=== PATIENT | male | born 1965 | race Two or more races ===

== ENCOUNTER → 2018-09-28 | Outpatient (CLI) | payer OTHER ==
[2018-09-28 09:18] LABS: Urine WBC None Seen /hpf (0 - 3)
[2018-09-28 09:35] LABS: Urine Bacteria NONE SEEN /hpf (None Seen); Urine Blood Negative /uL (Negative); Urine Mucus FEW (None Seen); Urine Specific Gravity 1.018 (1.001-1.035)
[2018-09-28 09:37] LABS: Basophils # (auto) 0.1 uL; Eosinophils # (auto) 0.1 uL; Eosinophils % (auto) 1.7 % (0.0-7.0); Hematocrit 49.2 % (41.0-53.0); Hemoglobin 17.1 g/dL (13.5-17.5); Lymphocytes # (auto) 3.2 uL; Lymphocytes % (auto) 46.2 % (10.0-50.0); Mean Corpuscular Hemoglobin 29.2 pg (28.0-32.0); Mean Corpuscular Hgb Conc. 34.7 g/dL (32.0-36.0); Mean Corpuscular Volume 84.1 fL (80.0-100.0); Monocytes # (auto) 0.5 uL; Neutrophils # (auto) 3.1 uL; Neutrophils % (auto) 44.1 % (37.0-80.0); Nucleated Red Blood Cells % 0.4 %; Platelet Count (auto) 231 10^3/uL (140-450); Red Blood Cells 5.84 10^6/uL (4.5-5.90); Red Cell Distribution Width 14.2 % (11.8-14.3)
[2018-09-28 10:05] LABS: Albumin 3.8 g/dL (3.4-5.0); Calcium 8.6 mg/dL (8.5-10.1); Magnesium 1.9 mg/dL (1.6-2.6); Potassium 3.6 mmol/L (3.5-5.1)
[2018-09-28 10:12] LABS: BUN/Creatinine Ratio 8.5; Bilirubin, Total 1.4 mg/dL (0.2-1.0); Phosphorus 2.9 mg/dL (2.5-4.90); Total Protein 7.5 g/dL (6.4-8.2)
== END | disposition home or self-care (01) ==
LOC: LAB 08:33
PROVIDERS: ATTEND Internal Medicine Nephrology
DX: I10 Essential (primary) hypertension (principal)
CPT/HCPCS: 36415; 80053; 80061; 81001; 83036; 83735; 84100; 84443; 85025

== ENCOUNTER → 2018-10-31 | Outpatient (CLI) | payer OTHER ==
[2018-10-31 10:35] LABS: Urine Bacteria NONE SEEN /hpf (None Seen); Urine Blood Negative /uL (Negative); Urine Mucus FEW (None Seen); Urine Specific Gravity 1.018 (1.001-1.035); Urine WBC <1 /hpf (0 - 3)
[2018-10-31 11:07] LABS: Potassium 3.9 mmol/L (3.5-5.1)
[2018-10-31 11:15] LABS: Calcium 8.7 mg/dL (8.5-10.1)
[2018-10-31 11:18] LABS: Protein, Urine 13.4 mg/dL (0.0-11.9)
[2018-10-31 11:29] LABS: Micro Albumin 16.1 mg/L (0-30.0)
== END | disposition home or self-care (01) ==
LOC: LAB 08:54
PROVIDERS: ATTEND Internal Medicine Nephrology
DX: R80.9 Proteinuria, unspecified (principal); I10 Essential (primary) hypertension
CPT/HCPCS: 36415; 80048; 81001; 82043; 82570; 84156

== ENCOUNTER 2019-02-18 10:22 | Inpatient (IN) | payer OTHER ==
[~2019-02-18] VITALS: Ht 180.3 cm; Wt 97.8 kg
[2019-02-18] MEDS ORDERED: methylPREDNISolone SOD SUCC 125 MG/2 ML VL IV ONE (10:45)
[2019-02-18] MEDS ORDERED: ALBUTEROL SULF 2.5 MG/0.5ML(0.5%) NEB SOLN HHN ONE (10:45)
[2019-02-18 10:59] LABS: Basophils # (auto) 0.1 uL; Basophils % (auto) 0.8 % (0.0-2.0); Eosinophils # (auto) 0.1 uL; Eosinophils % (auto) 1.3 % (0.0-7.0); Hematocrit 50.7 % (41.0-53.0); Hemoglobin 17.5 g/dL (13.5-17.5); Lymphocytes # (auto) 3.3 uL; Lymphocytes % (auto) 37.8 % (10.0-50.0); Mean Corpuscular Hemoglobin 29.3 pg (28.0-32.0); Mean Corpuscular Hgb Conc. 34.5 g/dL (32.0-36.0); Mean Corpuscular Volume 84.8 fL (80.0-100.0); Monocytes # (auto) 1.1 uL; Monocytes % (auto) 12.3 % (0.0-12.0); Neutrophils # (auto) 4.1 uL; Neutrophils % (auto) 47.8 % (37.0-80.0); Nucleated Red Blood Cells % 0.3 %; Platelet Count (auto) 216 10^3/uL (140-450); Red Blood Cells 5.97 10^6/uL (4.5-5.90); Red Cell Distribution Width 13.8 % (11.8-14.3); White Blood Cell 8.6 10^3/uL (4.4-10.8)
[2019-02-18 11:09] LABS: Albumin 3.8 g/dL (3.4-5.0); Anion Gap 2 (5-15); Blood Urea Nitrogen 11 mg/dL (7-18); Calcium 8.8 mg/dL (8.5-10.1); Carbon Dioxide 29 mmol/L (21-32); Chloride 104 mmol/L (98-107); Glucose 118 mg/dL (74-106); Potassium 3.7 mmol/L (3.5-5.1); Sodium 135 mmol/L (136-145)
[2019-02-18 11:16] LABS: Alanine Aminotransferase 25 U/L (16-61); Alkaline Phosphatase 64 U/L (45-117); Aspartate Aminotransferase 21 U/L (15-37); BUN/Creatinine Ratio 8.3; Bilirubin, Total 0.8 mg/dL (0.2-1.0); GFR African American 72 mL/min; GFR Non-African American 60 mL/min; Total Protein 8.3 g/dL (6.4-8.2)
[2019-02-18] MEDS ORDERED: ACETAMINOPHEN 500 MG TAB PO PRN (13:30)
[2019-02-18] MEDS ORDERED: hydrALAZINE HCL 20 MG/ML VL IV PRN (13:30)
[2019-02-18] MEDS ORDERED: NITROGLYCERIN 0.4 MG SL TAB SL PRN (13:30)
[2019-02-18] MEDS ORDERED: ONDANSETRON HCL 4 MG/2 ML VIAL IV PRN (13:30)
[2019-02-18] MEDS ORDERED: MORPHINE SULF INJ 2 MG/ML SYRINGE 1ML IV PRN ×2 (13:30)
[2019-02-18] MEDS: cefTRIAXone 1GM/50ML D5W 50 ML IV SCH (14:15)
[2019-02-18] MEDS: IPRATROPIUM BROM 0.5 MG/2.5ML INH SOL NEB SCH ×3 (14:31→22:11)
[2019-02-18] MEDS: ALBUTEROL SULF 2.5 MG/0.5ML(0.5%) NEB SOLN NEB SCH ×3 (14:31→22:11)
[2019-02-18 14:54] VITALS: BP 144/75
[2019-02-18] MEDS: AZITHROMYCIN 500MG/ 250ML 250 ML IV SCH (15:05)
[2019-02-18 18:45] VITALS: BP 148/85
[2019-02-18] MEDS: methylPREDNISolone SOD SUCC 125 MG/2 ML VL IV SCH (21:13)
[2019-02-18] MEDS: HYDROcodone-ACET 5/325MG TAB PO PRN (21:16)
[2019-02-18 22:00] VITALS: BP 132/86
[2019-02-18] MEDS: BUDESONIDE (INHALATION) 0.5 MG/2 ML NEB NEB SCH (22:11)
[2019-02-19 05:00] VITALS: BP 143/89
[2019-02-19] MEDS: ALBUTEROL SULF 2.5 MG/0.5ML(0.5%) NEB SOLN NEB SCH ×5 (06:05→22:23)
[2019-02-19] MEDS: IPRATROPIUM BROM 0.5 MG/2.5ML INH SOL NEB SCH ×5 (06:05→22:23)
[2019-02-19 06:57] LABS: Basophils # (auto) 0 uL; Basophils % (auto) 0.5 % (0.0-2.0); Eosinophils # (auto) 0 uL; Hematocrit 48.7 % (41.0-53.0); Lymphocytes # (auto) 1.4 uL; Lymphocytes % (auto) 23.2 % (10.0-50.0); Mean Corpuscular Hemoglobin 29.9 pg (28.0-32.0); Mean Corpuscular Volume 85.4 fL (80.0-100.0); Monocytes # (auto) 0.3 uL; Monocytes % (auto) 4.3 % (0.0-12.0); Neutrophils # (auto) 4.2 uL; Nucleated Red Blood Cells % 0.4 %; Platelet Count (auto) 212 10^3/uL (140-450); Red Blood Cells 5.71 10^6/uL (4.5-5.90); Red Cell Distribution Width 13.7 % (11.8-14.3); White Blood Cell 5.9 10^3/uL (4.4-10.8)
[2019-02-19 07:16] LABS: BUN/Creatinine Ratio 14.8; Calcium 8.7 mg/dL (8.5-10.1); Potassium 4.4 mmol/L (3.5-5.1)
[2019-02-19 08:00] VITALS: BP 147/83
[2019-02-19] MEDS: cefTRIAXone 1GM/50ML D5W 50 ML IV SCH (08:21)
[2019-02-19] MEDS: AZITHROMYCIN 500MG/ 250ML 250 ML IV SCH (10:16)
[2019-02-19] MEDS: methylPREDNISolone SOD SUCC 125 MG/2 ML VL IV SCH ×2 (10:17→22:37)
[2019-02-19] MEDS: FAMOTIDINE 20 MG TAB PO SCH (10:17)
[2019-02-19] MEDS: amLODIPine BESYLATE 5 MG TAB PO SCH (10:17)
[2019-02-19] MEDS: BUDESONIDE (INHALATION) 0.5 MG/2 ML NEB NEB SCH ×2 (10:29→19:32)
[2019-02-19 12:00] VITALS: BP 126/79
[2019-02-19 17:00] VITALS: BP 136/84
[2019-02-19] MEDS: HYDROcodone-ACET 5/325MG TAB PO PRN (18:17)
[2019-02-19 22:00] VITALS: BP 127/72
[2019-02-20 05:00] VITALS: BP 130/70
[2019-02-20] MEDS: IPRATROPIUM BROM 0.5 MG/2.5ML INH SOL NEB SCH ×3 (05:55→14:00)
[2019-02-20] MEDS: BUDESONIDE (INHALATION) 0.5 MG/2 ML NEB NEB SCH (05:55)
[2019-02-20] MEDS: ALBUTEROL SULF 2.5 MG/0.5ML(0.5%) NEB SOLN NEB SCH ×3 (05:55→14:00)
[2019-02-20 08:00] VITALS: BP 132/90
[2019-02-20] MEDS: cefTRIAXone 1GM/50ML D5W 50 ML IV SCH (08:54)
[2019-02-20] MEDS: AZITHROMYCIN 500MG/ 250ML 250 ML IV SCH (10:35)
[2019-02-20] MEDS: methylPREDNISolone SOD SUCC 125 MG/2 ML VL IV SCH (10:37)
[2019-02-20] MEDS: FAMOTIDINE 20 MG TAB PO SCH (10:37)
[2019-02-20] MEDS: amLODIPine BESYLATE 5 MG TAB PO SCH (10:37)
[2019-02-20 12:59] VITALS: BP 133/79
== END 2019-02-20 13:40 | disposition home or self-care (01) | DRG 189 ==
LOC: ER 10:27 → OVERFLOW 10:28 → CENTRAL 18:10
PROVIDERS: ADMIT Nurse Practitioner Acute Care; ATTEND Family Medicine
DX: J96.01 Acute respiratory failure with hypoxia (principal); J44.1 Chronic obstructive pulmonary disease with (acute) exacerbation; J44.0 Chronic obstructive pulmonary disease with (acute) lower respiratory infection; E66.9 Obesity, unspecified; F17.290 Nicotine dependence, other tobacco product, uncomplicated; I10 Essential (primary) hypertension; J20.9 Acute bronchitis, unspecified; Z68.30 Body mass index [BMI] 30.0-30.9, adult; Z71.6 Tobacco abuse counseling
CPT/HCPCS: 36415; 71045; 80048; 80053; 83880; 84484; 85025; 85379; 87070; 87205; 87804; 93005; 94640; 94644; 96365; 96367; 96375; G0378; J0696

== ENCOUNTER → 2019-04-29 | Outpatient (CLI) | payer OTHER ==
[~2019-04-29] MED LIST: ALBUTEROL SULF 2.5 MG/0.5ML(0.5%) NEB SOLN ONE
== END | disposition home or self-care (01) ==
LOC: RT 08:39
PROVIDERS: ATTEND Internal Medicine Pulmonary Disease
DX: J44.9 Chronic obstructive pulmonary disease, unspecified (principal); R06.09 Other forms of dyspnea
CPT/HCPCS: 94060; 94727; 94729

== ENCOUNTER → 2019-10-31 | Outpatient (CLI) | payer OTHER | END | disposition home or self-care (01) | LOC: XYW 09:53 | PROVIDERS: ATTEND Internal Medicine | DX: R06.02 Shortness of breath (principal) | CPT/HCPCS: 93306 ==

== ENCOUNTER → 2019-11-01 | Outpatient (CLI) | payer OTHER ==
[2019-11-01 08:11] LABS: Basophils # (auto) 0.1 10 ^3/uL (0-0.2); Basophils % (auto) 1.1 % (0.0-2.0); Eosinophils # (auto) 0.1 10 ^3/uL (0-0.8); Hematocrit 44.8 % (41.0-53.0); Hemoglobin 15.1 g/dL (13.5-17.5); Lymphocytes # (auto) 2.4 10 ^3/uL (0.4-5.4); Lymphocytes % (auto) 32.9 % (10.0-50.0); Mean Corpuscular Hemoglobin 27.5 pg (28.0-32.0); Mean Corpuscular Hgb Conc. 33.7 g/dL (32.0-36.0); Mean Corpuscular Volume 81.5 fL (80.0-100.0); Monocytes # (auto) 0.5 10 ^3/uL (0-1.3); Neutrophils # (auto) 4.3 10 ^3/uL (1.6-8.6); Nucleated Red Blood Cells % 0.3 %; Platelet Count (auto) 364 10^3/uL (140-450); Red Cell Distribution Width 13.8 % (11.8-14.3); White Blood Cell 7.3 10^3/uL (4.4-10.8)
[2019-11-01 08:39] LABS: Albumin 3.6 g/dL (3.4-5.0); Calcium 8.8 mg/dL (8.5-10.1); Potassium 4.2 mmol/L (3.5-5.1)
[2019-11-01 08:44] LABS: BUN/Creatinine Ratio 13.6; Bilirubin, Total 0.7 mg/dL (0.2-1.0); Total Protein 7.5 g/dL (6.4-8.2)
== END | disposition home or self-care (01) ==
LOC: LAB 07:43
PROVIDERS: ATTEND Internal Medicine
DX: I10 Essential (primary) hypertension (principal)
CPT/HCPCS: 36415; 80053; 85025

== ENCOUNTER → 2019-11-01 | Outpatient (CLI) | payer OTHER ==
[~2019-11-01] VITALS: Ht 175.3 cm; Wt 117.9 kg
[~2019-11-01] MED LIST changes: +ADENOSINE 99 MG in GIVE UN-DILUTED 0 ML IV STA; -ALBUTEROL SULF 2.5 MG/0.5ML(0.5%) NEB SOLN ONE
== END | disposition home or self-care (01) ==
LOC: XY 08:21
PROVIDERS: ATTEND Internal Medicine
DX: R06.02 Shortness of breath (principal); R63.8 Other symptoms and signs concerning food and fluid intake; I10 Essential (primary) hypertension; J44.9 Chronic obstructive pulmonary disease, unspecified
CPT/HCPCS: 78452; 93017; A9500; J0153

== ENCOUNTER 2019-11-18 12:00 | Inpatient (IN) | payer OTHER ==
[~2019-11-18] VITALS: Ht 175.3 cm; Wt 119.5 kg
[2019-11-18 13:00] LABS: Basophils # (auto) 0.2 10 ^3/uL (0-0.2); Basophils % (auto) 1.4 % (0.0-2.0); Eosinophils # (auto) 0.1 10 ^3/uL (0-0.8); Eosinophils % (auto) 1.4 % (0.0-7.0); Hematocrit 45.4 % (41.0-53.0); Hemoglobin 15.5 g/dL (13.5-17.5); Lymphocytes # (auto) 3.3 10 ^3/uL (0.4-5.4); Lymphocytes % (auto) 30.3 % (10.0-50.0); Mean Corpuscular Hemoglobin 27.9 pg (28.0-32.0); Mean Corpuscular Hgb Conc. 34.1 g/dL (32.0-36.0); Mean Corpuscular Volume 81.9 fL (80.0-100.0); Monocytes % (auto) 9.7 % (0.0-12.0); Neutrophils # (auto) 6.2 10 ^3/uL (1.6-8.6); Neutrophils % (auto) 57.2 % (37.0-80.0); Nucleated Red Blood Cells % 0.4 %; Platelet Count (auto) 341 10^3/uL (140-450); Red Blood Cells 5.55 10^6/uL (4.5-5.90); Red Cell Distribution Width 14.5 % (11.8-14.3); White Blood Cell 10.8 10^3/uL (4.4-10.8)
[2019-11-18 13:12] LABS: INR 1.02 (0.9-1.15); Partial Thromboplastin Time 29.2 sec (23.0-31.2)
[2019-11-18 13:18] LABS: Albumin 3.4 g/dL (3.4-5.0); Anion Gap 5 (5-15); Blood Urea Nitrogen 12 mg/dL (7-18); Calcium 9.2 mg/dL (8.5-10.1); Carbon Dioxide 25 mmol/L (21-32); Chloride 108 mmol/L (98-107); GFR African American 90 mL/min; GFR Non-African American 74 mL/min; Glucose 86 mg/dL (74-106); Potassium 3.8 mmol/L (3.5-5.1); Sodium 138 mmol/L (136-145)
[2019-11-18 13:23] LABS: Alanine Aminotransferase 21 U/L (16-61); Alkaline Phosphatase 65 U/L (45-117); Aspartate Aminotransferase 13 U/L (15-37); Bilirubin, Total 0.6 mg/dL (0.2-1.0); Total Protein 7.9 g/dL (6.4-8.2)
[2019-11-18] MEDS ORDERED: IOHEXOL 350 MG/ML 100ML IJ ONE (13:29)
[2019-11-18] MEDS ORDERED: ONDANSETRON HCL 4 MG/2 ML VIAL IV ONE (13:30)
[2019-11-18] MEDS ORDERED: MORPHINE SULF INJ 2 MG/ML SYRINGE 1ML IV ONE (13:30)
[2019-11-18 15:57] LABS: Urine Bacteria NONE SEEN /hpf (None Seen); Urine Blood Negative /uL (Negative); Urine Mucus FEW (None Seen); Urine Specific Gravity 1.028 (1.001-1.035); Urine WBC <1 /hpf (0 - 3)
[2019-11-18] MEDS ORDERED: MORPHINE SULF INJ 2 MG/ML SYRINGE 1ML IV PRN ×2 (16:45)
[2019-11-18] MEDS ORDERED: ONDANSETRON HCL 4 MG/2 ML VIAL IV PRN (16:45)
[2019-11-18] MEDS ORDERED: ACETAMINOPHEN 500 MG TAB PO PRN (16:45)
[2019-11-18] MEDS ORDERED: NITROGLYCERIN 0.4 MG SL TAB SL PRN (16:45)
[2019-11-18] MEDS ORDERED: KETOROLAC TROMETH 30 MG/ML 1ML VIAL IV ONE (16:45)
[2019-11-18] MEDS ORDERED: hydrALAZINE HCL 20 MG/ML VL IV PRN (16:45)
[2019-11-18 17:12] LABS: Cholesterol 126 mg/dL (< 200)
[2019-11-18 17:15] LABS: HDL Cholesterol 35 mg/dL (40-59); LDL Cholesterol 70 mg/dL (< 100); Triglycerides 178 mg/dL (< 150)
[2019-11-18] MEDS ORDERED: HYDR12.56 PO ×2 (18:19→20:57)
[2019-11-18] MEDS ORDERED: AMLO10TA13 PO (18:19)
[2019-11-18] MEDS ORDERED: LOSA-69 PO (18:19)
[2019-11-18] MEDS ORDERED: IBUP200C95 PO (18:20)
[2019-11-18] MEDS ORDERED: ACET-1304 PO (18:20)
--- NOTE | 2019-11-18 20:15 | NUR ---
Telemetry admit from ER MALIH[facility]ME[facility] admitted to Telemetry unit after NO SBAR WAS received. Patient oriented to ABBY rodriguez RN, unit, room, bed, and unit policies regarding patient care and visiting hours. Patient now on continuous telemetry monitoring, tele box # 50 and telemetry reading on arrival to unit is sinus rhythm at 94 bpm. Patient weighed by bedscale and encouraged to call if they need something. All questions and concerns addressed, patient verbalized understanding.
[2019-11-18] MEDS: HYDROcodone-ACET 5/325MG TAB PO PRN (20:30)
--- NOTE | 2019-11-18 20:30 | NUR ---
Patient is complaining of pain to the right shoulder blade, 7/0-10. Patient states morphine does not work for him, [place] 5 administered, will reassess.
--- NOTE | 2019-11-18 21:30 | NUR ---
Patient is resting in bed asleep, no S/S of pain noted. Call light is within reach.
[2019-11-18 22:00] VITALS: BP 129/79
[2019-11-19] MEDS: HYDROcodone-ACET 5/325MG TAB PO PRN (02:36)
--- NOTE | 2019-11-19 02:37 | NUR ---
Patient is complaining of pain to the right shoulder blade, 9/0-10. [place] 5 administered, will reassess.
--- NOTE | 2019-11-19 03:40 | NUR ---
Patient is resting in bed asleep, no S/S of pain noted. Call light is within reach.
--- NOTE | 2019-11-19 05:05 | NUR ---
Paged hospitalist. Patient is complaining of pain 7/0-10 to the left upper back. Pt states morphine does not work and the [place] helps but is not strong enough.
[2019-11-19 05:12] VITALS: BP 140/85
--- NOTE | 2019-11-19 05:41 | NUR ---
Hospitalist called back, new order received for Toradol 15 mg IVP x1. See eMAR and order history.
[2019-11-19] MEDS ORDERED: KETOROLAC TROMETH 30 MG/ML 1ML VIAL IV ONE ×2 (05:45→13:45)
--- NOTE | 2019-11-19 06:09 | NUR ---
Toradol administered for pain 7/0-10. Instructed patient to call for assistance, will continue to monitor.
--- NOTE | 2019-11-19 07:38 | NUR ---
Opening Shift Note Assumed care of patient, awake and alert. Patient is on room air, respirations are even and non labored. No S/S of distress/SOB noted. Patient stated that he had some pain but the Toradol worked best and that he didn't want the other prescribed pain meds. Instructed on POC and to call for assist PRN, will continue to monitor for changes Q1hr and PRN.
[2019-11-19 09:00] VITALS: BP 117/73
[2019-11-19] MEDS ORDERED: PANTOPRAZOLE 40 MG TAB PO SCH (10:00)
[2019-11-19] MEDS ORDERED: LOSARTAN POTASSIUM 50 MG TAB PO SCH (10:00)
--- NOTE | 2019-11-19 11:35 | NUR ---
Off unit Patient taken to VQ Scan.
--- NOTE | 2019-11-19 12:11 | NUR ---
CALL [facility] CALLED LAB TO ADD ON A UDS. S[facility] LIFTER STATES SHE WILL TRY TO ADD IT IN.
[2019-11-19 13:00] VITALS: BP 140/89
[2019-11-19 13:26] LABS: Alcohol, Urine < 3.0 mg/dL (0-10); Amphetamine Screen, Urine NEGATIVE (NEGATIVE); Barbiturate Scree,Urine NEGATIVE (NEGATIVE); Benzodiazephine Screen, Urine NEGATIVE (NEGATIVE); Cannabinoid Screen, Urine NEGATIVE (NEGATIVE); Cocaine Screen, Urine NEGATIVE (NEGATIVE); Opiate Scree,Urine NEGATIVE (NEGATIVE); Phencyclidine Screen, Urine NEGATIVE (NEGATIVE)
[2019-11-19] MEDS ORDERED: PANT40T PO (13:38)
[2019-11-19] MEDS ORDERED: IBUP600T27 PO (13:38)
--- NOTE | 2019-11-19 13:51 | NUR ---
Pain reported Patient reported 7/10 pain to the back and shoulders. Toradol administered as ordered. Will continue to monitor.
[2019-11-19 16:52] VITALS: BP 140/81
--- NOTE | 2019-11-19 17:15 | NUR ---
Discharge instructions given as ordered. Encourage to follow up with PMD as instructed. All questions and concerns addressed. Patient verbalized understanding. IV removed with catheter intact, pressure dressing applied, patient tolerated well. Telemetry unit returned to ICU. Patient taken to vehicle via wheelchair with all personal belongings, accompanied by staff. No distress noted at time of departure. Addendum: 11/19/19 at 1742 by ADWOA ALVAREZ RN RN Patient given off work order.
== END 2019-11-19 17:15 | disposition home or self-care (01) | DRG 555 ==
LOC: ER 12:00 → TELE 12:01 → TELE-WESTW 20:16
PROVIDERS: ADMIT Nurse Practitioner Acute Care; ATTEND Internal Medicine
DX: M79.18 Myalgia, other site (principal); I50.43 Acute on chronic combined systolic (congestive) and diastolic (congestive) heart failure; M54.5 Low back pain; I11.0 Hypertensive heart disease with heart failure; R09.02 Hypoxemia; F17.210 Nicotine dependence, cigarettes, uncomplicated; J43.2 Centrilobular emphysema; E66.01 Morbid (severe) obesity due to excess calories; Z68.38 Body mass index [BMI] 38.0-38.9, adult; Z71.3 Dietary counseling and surveillance
CPT/HCPCS: 36415; 71260; 78582; 80053; 80061; 80307; 81001; 83880; 84484; 85025; 85379; 85610; 85730; 93005; 93970; 96374; 96375; G0378; J1885; J2405

== ENCOUNTER → 2019-12-03 | Outpatient (CLI) | payer OTHER ==
[~2019-12-03] MED LIST changes: +ACET-1304 PO; -ADENOSINE 99 MG in GIVE UN-DILUTED 0 ML IV STA; +AMLO10TA13 PO; +HYDR12.56 PO; +IBUP600T27 PO; +LOSA-69 PO; +PANT40T PO
[2019-12-03 14:29] LABS: BUN/Creatinine Ratio 8.9; Potassium 3.8 mmol/L (3.5-5.1); Uric Acid 10.7 mg/dL (3.5-7.2)
== END | disposition home or self-care (01) ==
LOC: LAB 13:25
PROVIDERS: ATTEND Internal Medicine Nephrology
DX: I10 Essential (primary) hypertension (principal); M79.606 Pain in leg, unspecified
CPT/HCPCS: 36415; 80048; 84550